=== PATIENT | female | born 1965 | race Caucasian/White ===

== ENCOUNTER 2017-09-19 17:18 | Emergency (ER) | END 2017-09-19 19:49 | disposition home or self-care (01) ==

== ENCOUNTER 2017-12-14 06:28 | Emergency (ER) | END 2017-12-14 11:23 | disposition home or self-care (01) ==

== ENCOUNTER 2018-02-04 15:24 | Emergency (ER) | END 2018-02-04 16:20 | disposition home or self-care (01) ==

== ENCOUNTER 2018-05-23 21:41 | Emergency (ER) | payer MEDICAID ==
[~2018-05-23] VITALS: Ht 160 cm; Wt 54.1 kg
[2018-05-23 21:44] VITALS: BP 131/69; PULSE 73; RESP 18; Ht 160 cm; Wt 54.1 kg
[2018-05-24] MEDS ORDERED: KETOROLAC 30 MG INJ IM STA (05:06)
[2018-05-24] MEDS ORDERED: NITR-58 PO (05:55)
--- NOTE | 2018-05-30 16:39 | ERD ---
ER Documentation Chief Complaint Chief Complaint BIB RA881,from home,c/o vaginal pain,denies dysuria HPI 53-year-old female patient with a past medical history of multiple sclerosis, endometrial cancer, traumatic brain injury presents to the ED stating that she has some vaginal pain and dryness. Denies any dysuria, urgency, frequency, hematuria, nausea, vomiting, diarrhea, neck stiffness, abdominal pain, chest pain, shortness of breath. Patient has had a previous hysterectomy. Denies any smoking, alcohol use, drug use. Patient reports that she is currently receiving chemotherapy for her endometrial cancer. ROS All systems reviewed and are negative except as per history of present illness. Medications Home Meds Active Scripts Nitrofurantoin Monohyd Macrocr* (Macrobid*) 100 Mg Capsr, 100 MG PO BID for 7 Days, CAP Prov:KENDRICK HERNANDEZ PA-C 05/24/18 Allergies Allergies: Coded Allergies: Sulfa (Sulfonamide Antibiotics) (Verified Allergy, Unknown, 04/24/18) PMhx/Soc History of Surgery: Yes (HYSTERECTOMY,HIP REPLACEMENT) Anesthesia Reaction: No Hx Neurological Disorder: Yes (MS) Hx Respiratory Disorders: No Hx Cardiac Disorders: No Hx Psychiatric Problems: No Hx Miscellaneous Medical Probl: Yes (ENDOMETRIAL CANCER) Hx Alcohol Use: No Hx Substance Use: No Hx Tobacco Use: No FmHx Family History: No diabetes, No coronary disease Physical Exam Vitals Temp 98.7 Pulse 73 Systolic blood pressure 131 Diastolic blood pressure 69 Respiratory rate 18 O2 sat 98 Physical Exam Const: [id number], well-nourished. In no acute distress. Head: Atraumatic, normocephalic Eyes: Normal Conjunctiva without injection. No purulent discharge. ENT: Normal external ear, nose. Moist oropharynx without tonsillar exudates. Non-erythematous pharynx. Uvula midline. No drooling. No trismus. Neck: No cervical midline tenderness. Full range of motion. No meningismus. No cervical lymphadenopathy. No JVD. Resp: Clear to auscultation bilaterally. No wheezing, rhonchi, rales, or crackles. No accessory muscle use. No retractions. Cardio: Regular rate and rhythm. No murmurs, rubs or gallops. Abd: Soft, nontender, non distended. Normal bowel sounds. No palpable masses. No rebound tenderness. No guarding. Negative McBurney's point. Negative psoas sign. Negative obturator sign. : See exam in MDM. Skin: No petechiae or rashes Back: No midline tenderness. No CVA tenderness. Ext: No cyanosis, or edema. Neur: Awake and alert. Normal gait. Normal coordination. Psych: Normal Mood and Affect Results 24 hrs Laboratory Tests Test 05/24/18 05:38 05/24/18 05:47 Bedside Urine pH (LAB) 5.5 Bedside Urine Protein (LAB) Negative Bedside Urine Glucose (UA) Negative Bedside Urine Ketones (LAB) Negative Bedside Urine Blood 1+ Bedside Urine Nitrite (LAB) Negative Bedside Urine Leukocyte Esterase (L 1+ POC Beta HCG, Qualitative NEGATIVE Current Medications Medications Dose Sig/Alesha Start Time Status Last (Trade) Ordered Route PRN Stop Time Admin Dose Reason Admin Ketorolac 30 mg ONCE STAT 05/24/18 DC 05/24/18 Tromethamine IM 05:06 05/24/18 05:28 (Toradol) 05:08 Procedures/[facility] 53-year-old female patient with a past medical history of multiple sclerosis, endometrial cancer, traumatic brain injury presents to the ED complaining of vaginal pain and dryness. Patient is afebrile and nontoxic-appearing. This patient was discussed with my supervising physician, Dr. Doe who stated that we can proceed with doing a pelvic exam. 1+ leukocyte esterase noted on the urine dip. Pelvic Exam: Panel Installer present Abdomen: Nontender External Genitalia: Normal Skin. No rashes, vesicles, bleeding noted. Speculum: Normal vaginal mucosa - slightly dry Bimanual: No adnexal masses or tenderness, No CMT Patient likely has atrophic vaginitis. Patient will be treated for urinary tract infection based on the 1+ leukocyte esterase noted on her urine dip. Patient was strictly instructed to follow-up with her SCIENTIST IMMUNOLOGY for further evaluation and treatment. Low suspicion for ectopic , ovarian torsion, gastritis, GERD, peptic ulcer disease, cholecystitis, choledocholithiasis, cholangitis, pancreatitis, appendicitis, bowel obstruction, ileus, volvulus, nephrolithiasis, pyelonephritis, hepatitis, perforated viscus, diverticulitis, strangulated/incarcerated hernia, DKA, acute abdomen, mesenteric ischemia or other emergent conditions. Discharge medications: Macrobid Follow up with primary care physician in 1-2 days for referral to her SCIENTIST IMMUNOLOGY for further care and treatment. Instructed patient to return to the ED sooner for any worsening symptoms. Patient's questions were answered. Patient is hemody namically stable. Patient understood and agreed with discharge plan. Patient discharged stable. Disclaimer: Inadvertent spelling and grammatical errors are likely due to EHR/dictation software use and do not reflect on the overall quality of patient care. Also, please note that the electronic time recorded on this note does not necessarily reflect the actual time of the patient encounter. Departure Diagnosis: Primary Impression: Vaginal burning Condition: Stable Patient Instructions: Urinary Tract Infections in Women, Vaginitis, Atrophic Referrals: [facility] YOU HAVE RECEIVED A MEDICAL SCREENING EXAM AND THE RESULTS INDICATE THAT YOU DO NOT HAVE A CONDITION THAT REQUIRES URGENT TREATMENT IN THE EMERGENCY DEPARTMENT. FURTHER EVALUATION AND TREATMENT OF YOUR CONDITION CAN WAIT UNTIL YOU ARE SEEN IN YOUR DOCTORS OFFICE WITHIN THE NEXT 1-2 DAYS. IT IS YOUR RESPONSIBILITY TO MAKE AN APPOINTMENT FOR FOLOW-UP CARE. IF YOU HAVE A PRIMARY DOCTOR --you should call your primary doctor and schedule an appointment IF YOU DO NOT HAVE A PRIMARY DOCTOR YOU CAN CALL OUR PHYSICIAN REFERRAL HOTLINE AT IF YOU CAN NOT AFFORD TO SEE A PHYSICIAN YOU CAN CHOSE FROM THE FOLLOWING [facility] [address] [facility]. [facility] [address] [facility]. [facility] [address] [facility] [facility] [address] [facility] [facility] [address] [facility]. [facility]. [address] [facility]. [facility] YOU HAVE RECEIVED A MEDICAL SCREENING EXAM AND THE RESULTS INDICATE THAT YOU DO NOT HAVE A CONDITION THAT REQUIRES URGENT TREATMENT IN THE EMERGENCY DEPARTMENT. FURTHER EVALUATION AND TREATMENT OF YOUR CONDITION CAN WAIT UNTIL YOU ARE SEEN IN YOUR DOCTORS OFFICE WITHIN THE NEXT 1-2 DAYS. IT IS YOUR RESPONSIBILITY TO MAKE AN APPOINTMENT FOR FOLOW-UP CARE. IF YOU HAVE A PRIMARY DOCTOR --you should call your primary doctor and schedule and appointment IF YOU DO NOT HAVE A PRIMARY DOCTOR YOU CAN CALL OUR PHYSICIAN REFERRAL HOTLINE AT . IF YOU CAN NOT AFFORD TO SEE A PHYSICIAN YOU CAN CHOSE FROM THE FOLLOWING [facility] INSTITUTIONS: [facility] [address] [place] [address] [facility] [address] [place] [address] [facility] [address] [place] [address] [facility]RGENT [facility]/SPECIALTIES Additional Instructions: Call your steel wool machine operator TOMORROW for an appointment during the next 2-3 days.See the doctor sooner or return here if your condition worsens before your appointment time. KENDRICK HERNANDEZ PA-C May 30, 2018 16:39
== END 2018-05-24 06:33 | disposition home or self-care (01) ==
LOC: FTE 21:41
DX: N89.8 Other specified noninflammatory disorders of vagina (principal); C54.1 Malignant neoplasm of endometrium; Z96.649 Presence of unspecified artificial hip joint
CPT/HCPCS: 81003; 81025; 96372; J1885; Z7502

== ENCOUNTER 2018-10-26 19:06 | Emergency (ER) | payer MEDICAID ==
[~2018-10-26] VITALS: Ht 157.5 cm; Wt 55.1 kg
[~2018-10-26 19:06] MED LIST: NITR-58 PO
[2018-10-26 19:09] VITALS: Ht 157.5 cm; Wt 55.1 kg
[2018-10-26] MEDS ORDERED: ASPIRIN 325 MG TAB PO STA (19:36)
[2018-10-26] MEDS ORDERED: SOD CHLORIDE 0.9% 1,000 ML IV STA (19:36)
[2018-10-26] MEDS ORDERED: SOD CHLORIDE 0.9% 100 ML ONE (20:26)
[2018-10-26] MEDS ORDERED: IOHEXOL 100 ML ONE (20:26)
[2018-10-26] MEDS ORDERED: KETOROLAC 15 MG INJ IV ONE (23:28)
--- NOTE | 2018-10-26 23:28 | ERD ---
ER Documentation Chief Complaint Chief Complaint BIBRA39,from home,chest pressure nonradiating pain HPI 53-year-old female history of hypertension, hyperlipidemia, MS, endometrial CA, traumatic brain injury and chest pain presents to the ED complaining of a 3-day history of unprovoked, intermittent episodes of sharp, nonradiating, moderate left-sided chest pain. Denies shortness of breath, nausea, vomiting or diaphoresis. No URI symptoms, cough or hemoptysis. Denies leg pain or swelling. No relieving or exacerbating factors. No fevers or chills. Patient was seen by her primary care physician today and referred to the ED to rule out pulmonary embolism. Patient has had multiple prior ED visits for chest pain. ROS All systems reviewed and are negative except as per history of present illness. Medications Home Meds Active Scripts Nitrofurantoin Monohyd Macrocr* (Macrobid*) 100 Mg Capsr, 100 MG PO BID for 7 Days, CAP Prov:KENDRICK HERNADNEZ PA-C 05/24/18 Allergies Allergies: Coded Allergies: Sulfa (Sulfonamide Antibiotics) (Verified Allergy, Unknown, 04/24/18) PMhx/Soc History of Surgery: Yes (HYSTERECTOMY,HIP REPLACEMENT) Anesthesia Reaction: No Hx Neurological Disorder: Yes (MS, TRAUMATIC BRAIN INJURY) Hx Respiratory Disorders: No Hx Cardiac Disorders: No Hx Psychiatric Problems: Yes (ANXIETY) Hx Miscellaneous Medical Probl: Yes (ENDOMETRIAL CANCER, HYPERLIPIDEMIA) Hx Alcohol Use: No Hx Substance Use: No Hx Tobacco Use: No Smoking Status: Never smoker FmHx Both parents apparently had heart disease in their late 70s. Physical Exam Vitals Vital Signs Date Temp Pulse Resp B/P (MAP) Pulse Ox O2 O2 Flow FiO2 Time Delivery Rate 10/26/18 59 14 124/79 100 Room Air 21:20 (94) 10/26/18 74 20 135/87 100 Room Air 19:20 (103) 10/26/18 98.2 64 17 114/71 100 19:09 (85) Physical Exam Const: Alert, anxious but in no acute distress Head: Atraumatic Eyes: Normal Conjunctiva ENT: Normal External Ears, Nose and Mouth. Neck: Full range of motion. No meningismus. Resp: Clear to auscultation bilaterally Cardio: Regular rate and rhythm, no murmurs. Chest Wall: No tenderness or bruising. Abd: Soft, non tender, non distended. Normal bowel sounds Skin: No petechiae or rashes Back: No midline or flank tenderness Ext: No cyanosis, or edema Neur: Awake and alert Psych: Anxious but not depressed. Result Diagram: 10/26/18193410/26/181934 Results 24 hrs Laboratory Tests Test 10/26/18 19:35 White Blood Count 4.8 10^3/ul Red Blood Count 4.31 10^6/ul Hemoglobin 12.3 g/dl Hematocrit 38.0 % Mean Corpuscular Volume 88.2 fl Mean Corpuscular Hemoglobin 28.5 pg Mean Corpuscular Hemoglobin Concent 32.4 g/dl Red Cell Distribution Width 12.6 % Platelet Count 234 10^3/UL Mean Platelet Volume 10.9 fl Immature Granulocytes % 0.200 % Neutrophils % 48.5 % Lymphocytes % 35.7 % Monocytes % 12.1 % Eosinophils % 2.7 % Basophils % 0.8 % Nucleated Red Blood Cells % 0.0 /100WBC Immature Granulocytes # 0.010 10^3/ul Neutrophils # 2.3 10^3/ul Lymphocytes # 1.7 10^3/ul Monocytes # 0.6 10^3/ul Eosinophils # 0.1 10^3/ul Basophils # 0.0 10^3/ul Nucleated Red Blood Cells # 0.0 10^3/ul Sodium Level 141 mmol/L Potassium Level 3.6 mmol/L Chloride Level 108 mmol/L Carbon Dioxide Level 30 mmol/L Anion Gap 3 Blood Urea Nitrogen 14 mg/dl Creatinine 0.87 mg/dl Est Glomerular Filtrat Rate mL/min > 60 mL/min Glucose Level 99 mg/dl Calcium Level 9.3 mg/dl Troponin I < 0.012 ng/ml Current Medications Medications Dose Sig/Alesha Start Time Status Last (Trade) Ordered Route PRN Stop Time Admin Dose Reason Admin Aspirin 325 mg ONCE STAT 10/26/18 DC 10/26/18 (Aspirin) PO 19:36 20:02 10/26/18 19:38 Sodium 1,000 ml @ Q1H STAT 10/26/18 DC 10/26/18 Chloride 1,000 mls/hr IV 19:36 20:02 10/26/18 20:35 IV Flush 10 ml STK-MED 10/26/18 DC 10/26/18 (NS 10 ml) ONCE .ROUTE 20:26 21:07 10/26/18 20:27 Sodium 100 ml @ STK-MED 10/26/18 DC 10/26/18 Chloride ONCE .ROUTE 20:26 21:07 10/26/18 20:27 Iohexol 100 ml @ STK-MED 10/26/18 DC 10/26/18 ONCE .ROUTE 20:26 21:07 10/26/18 20:27 Procedures/[facility] DOCUMENTS REVIEWED: ED nurse, prior ED, prior records EKG: Time: 19:36. Sinus rhythm. Ventricular rate 67 short AL interval at 102 ms. Normal QRS. No ST segment elevation depression. No ectopy. My Interpretation EKG: Time: 21:00 sinus rhythm. Ventricular rate 62. Short AL interval at 94 ms. Normal QRS. No acute ST segment elevation depression. No ectopy. My Interpretation IMAGING: PROCEDURE: XR Chest. CLINICAL INDICATION: chest pain TECHNIQUE: Single frontal view of the chest was obtained COMPARISON: CR CHEST 03/21/2009 FINDINGS: The heart and mediastinum are within normal limits. The lungs are clear. There is no pleural effusion or pneumothorax. RPTAT: AA IMPRESSION: No acute disease. .Fredrick To MD, MD Date Time Electronically viewed and signed by .Fredrick To MD, MD on 10/26/2018 20:19 .S/ CT Angiography Chest With Intravenous Contrast CLINICAL INDICATION: Chest pain and shortness of breath. TECHNIQUE: Axial computed tomographic angiography images of the chest with intravenous contrast using pulmonary embolism protocol. Sagittal and coronal reformatted images were created and reviewed. CTDIvol (mGy) = 5.46; total DLP (mGy-cm) = 213.80. This CT exam was performed using one or more of the following dose reduction techniques: automated exposure control, adjustment of the mA and/or kV according to patient size, and/or use of iterative reconstruction technique. DICOM images are available. MIP reconstructed images were created and reviewed. CONTRAST: 100 mL of Omnipaque 350 was administered intravenously. COMPARISON: None FINDINGS: PULMONARY ARTERIES: The pulmonary arteries are unremarkable. No pulmonary embolism. AORTA: The thoracic aorta is mildly atherosclerotic. No aneurysm or dissection. LUNGS: Mild atelectasis noted in the dependent portions of the lung bases. No consolidative pulmonary infiltrates. PLEURAL SPACE: Unremarkable. No significant effusion. No pneumothorax. HEART: Unremarkable. No cardiomegaly. No significant pericardial effusion. No evidence of RV dysfunction. THYROID: Enlargement of the left lobe of the thyroid gland. No discrete mass identified. Findings are suggestive of thyroid goiter. BONES/JOINTS: Scoliosis and degeneration of the thoracic spine. No acute fracture. No dislocation. SOFT TISSUES: Unremarkable. LYMPH NODES: Unremarkable. No enlarged lymph nodes. IMPRESSION: 1. The pulmonary arteries are unremarkable. No pulmonary embolism. 2. The thoracic aorta is mildly atherosclerotic. No aneurysm or dissection. 3. Mild atelectasis noted in the dependent portions of the lung bases. No consolidative pulmonary infiltrates. 4. Enlargement of the left lobe of the thyroid gland. No discrete mass identified. Findings are suggestive of thyroid goiter. RPTAT: [facility] Marly Viveros Physician Fiscal Services Director Date Time Electronically viewed and signed by Marly Viveros Physician Fiscal Services Director on 10/26/2018 21:21 Observation Note: Time: 3.5 hours Family Hx: No Hypertension Evaluation: Multiple exams showed improving symptoms and no evidence of acute coronary syndrome, pulmonary embolism, pneumonia or aortic dissection. MEDICAL DECISION MAKIN-year-old female history of hypertension, hyperlipidemia, MS, endometrial CA, traumatic brain injury and chest pain presents to the ED complaining of a 3-day history of unprovoked, intermittent episodes of sharp, nonradiating, moderate left-sided chest pain. CBC to evaluate for leukocytosis, anemia and thrombocytopenia is unremarkable. Chemistry reveals no evidence of electrolyte abnormalities, renal insufficiency or hyperglycemia. Chest x-ray is negative for pneumonia, CHF or pneumothorax. The patient presents with chest pain and I considered pulmonary embolism, aortic dissection, pneumothorax among other diagnoses. CT pulmonary angiogram is negative for pulmonary embolism. Evaluation for acute coronary syndrome was performed. The HEART score was utilized for risk stratification and found to be 3. Repeat EKG and troponin @ 3 hours were unchanged. Based on this evaluation the patients risk of major adverse cardiac events is <1%. Shared decision making occurred with patient and the decision has been made to discharge the patient for outpatient evaluation and functional study within 72 hours. Stable for discharge with precautionary instructions and outpatient follow-up as counseled. Counseled patient regarding diagnostic workup, diagnosis and need for followup. Understands to return to ED if symptoms recur, worsen or any other concerns. Departure Diagnosis: Primary Impression: Chest pain Chest pain type: unspecified Qualified Codes: R07.9 - Chest pain, unspecified Additional Impressions: History of multiple sclerosis History of endometrial cancer Condition: Stable VICKI DE LA ROSA MD Oct 26, 2018 23:27
[2018-10-26 23:30] VITALS: BP 134/81; PULSE 58; RESP 18
== END 2018-10-26 23:34 | disposition home or self-care (01) ==
LOC: E/R 19:06
DX: I10 Essential (primary) hypertension (principal); Z85.42 Personal history of malignant neoplasm of other parts of uterus; Z86.69 Personal history of other diseases of the nervous system and sense organs
CPT/HCPCS: 36415; 71045; 71275; 80048; 84484; 85025; J7030; Q9967; Z7502; Z7610; 93005